=== PATIENT | male | born 1955 | race Caucasian/White ===

== ENCOUNTER 2020-05-07 17:08 | Inpatient (IN) | payer OTHER ==
[~2020-05-07] VITALS: Ht 180.3 cm; Wt 99.3 kg
[2020-05-07 20:00] VITALS: BP 136/66
[2020-05-07] MEDS ORDERED: GLUMETZA1000 (20:28)
[2020-05-07] MEDS ORDERED: ST. JOSEPH ASPI81 MG PO (20:29)
[2020-05-07] MEDS ORDERED: LIPITOR40 MG PO (20:30)
[2020-05-07] MEDS ORDERED: LISINOPRIL10 MG PO (20:30)
[2020-05-07] MEDS ORDERED: LIDODERM1 EACH TOP (20:31)
--- NOTE | 2020-05-07 21:16 | NUR ---
PATIENT WAS ADMITTED TO [facility] AND ARRIVED TO FLOOR AT 1919 BY EMS. PATIENT IS QUIET AND STATES HE IS TIRED AND HAVING WHAT HE DESCRIBES NEUROPATHY PAIN IN SHOULDER L, SPINE, FEET. HE STATES WHEN HIS CHEST IS TOUCHED IT FEELS LIKE A PIN CUSHION. PATIENT STATES HOT SHOWERS HELP AND HE USUALLY HAS LIDOCAINE PATCH ON HIS BACK FOR BACK PAIN. NONE PRESENT AT THIS TIME. PATIENT WAS SHOWERED. HE IS INDEPENDENT WITH CARES AND IS CONTINENT OF BOWEL AND BLADDER. HE CAME TO US FROM [facility]. HE HAS BEEN IN AND OUT OF PSYCH TREATMENT THROUGH OUT HIS LIFETIME. HE SIGNED VOLUNTEERLY AND STATES HE IS HERE BECAUSE HE WAS BEEING CHASED BY POLICE THAT WERE WANTING TO HURT AND TORTURE HIM. HE STATES HE FEELS SAFE NOW SINCE HE KNOWS HE'S NOT IN [place]. I ASKED IF HE KNEW WHERE HE WAS? HE STATED HOSPITAL BUT DOESN'T THINK IT'S IN . ORIENTED PATIENT TO FLOOR. PATIENT WANTED TO GO TO SLEEP RIGHT AWAY AFTER SHOWER. HE WAS GIVEN A BOX LUNCH ONCE HE GOT HERE AND ATE 100%. PATIENT HAS MED HISTORY OF [facility] AND HYPERLIPIDEMIA. IT APPEARS THAT PATIENT IS LIVING ON HIS OWN WHEN NOT IN HOSPITAL DUE TO CANNABIS USE. PT MENTAL HX OF SCHZOAFFECTIVE DISORDER, BIPOLAR/CANNABIS USE. PATIENT IS ACCEPTING OF THIS HOSPITAL STAY. PATIENT AMBULATES WITHOUT ISSUE. PHYSICAL ASSESSMENT WNL. LBM WAS 05/07/20. BED IN LOW POSITION AND BED ALARM IS ON FOR TONIGHT FOR SAFETY.
--- NOTE | 2020-05-08 01:20 | NUR ---
UPON ADMISSION AT 1910 PATIENT ASSESSMENT WAS DONE. PATIENT NEGATIVE FOR SIGNS OF COVID. HE IS A/0X3. HE HAS REGULAR HEART RATE AND S1S2 HEARD. LUNGS ARE CTA BILATERALLY, POSITIVE BOWEL SOUNDS IN ALL 4 QUADS OF ABDOMEN. NO EDEMA NOTED. PATIENT INDEPENDENT WITH CARES AND HAS STEADY GAIT. PATIENT WITH FLAT AFFECT. HE IS COOPERATIVE BUT IRRITABLE AT TIMES WHEN QUESTIONED. HE STATES HE IS VERY TIRED. PATIENT DENIES SI/HI/AVH. HE IS DELUSIONAL BELIEVING THAT THE [place] POLICE ARE LOOKING FOR HIM AND TRYING TO HURT AND TORTURE HIM. HE DOES NOT THINK HE'S IN [place] NOW SO STATES HE FEELS SAFE NOW. PATIENT HAS BEEN SLEEPING SINCE 2149. BED ALARM IS ON FOR SAFETY FOR FIRST NIGHT. WILL CONTINUE TO MONITOR.
--- NOTE | 2020-05-08 02:15 | NUR ---
PATIENT STARTED WITH DRY COUGH OFF AND ON THRU NIGHT. PATIENT'S COVID 19 PCR TEST WAS NEGATIVE. PATIENT UP TO BATHROOM. DENIES PAIN AT THIS TIME. BACK TO BED. BED ALARM ON TONIGHT. PATIENT WITH STEADY WALKING GAIT.
--- NOTE | 2020-05-08 06:41 | NUR ---
PATIENT GIVEN TYLENOL 650MG PO FOR GENERALIZED NEUROPATHY PAIN. PATIENT FELL BACK TO SLEEP AFTER TAKING AND SLEPT THRU THE NIGHT.
--- NOTE | 2020-05-08 06:49 | NUR ---
PATIENT WOKE AT 0300 FROM NIGHT SWEATS AND GOWN CHANGED. PATIENT REFUSED TO HAVE BED CHANGED. PATIENT STATES HE GETS THE NIGHT SWEATS ALOT FOR A LONG TIME.
[2020-05-08 07:58] VITALS: BP 165/87
--- NOTE | 2020-05-08 08:31 | NUR ---
ASSUMED CARE AT 0700 THIS MORNING. PT. IRRITABLE, NOT ACCEPTING DIRECTIONS FROM RN. HE WAS ASKED TO STAY IN HIS ROOM UNTIL DR. ORTIZ ARRIVES. HE CAME INTO THE DINING ROOM FOR BREAKFAST. STAFF SAT OTHER PATIENTS ACROSS THE ROOM FROM HIM. AFTER, HE SAT ON THE SOFA. AGAIN STAFF DIRECTED HIM INTO HIS ROOM. HE DID THEN GO TO HIS ROOM AT THAT POINT. WHEN ATTEMPTING TO GIVE HIM HIS MEDICATIONS, HE TOOK THE ORAL MEDICATIONS, BUT REFUSED INSULIN FOR A BLOOD SUGAR OF 290. HE STATED THAT "I NEVER TAKE INSULIN. WHO ORDERED THAT?" PT. IS CURRENTLY LYING IN HIS BED.
[2020-05-08 09:12] VITALS: BP 165/87
--- NOTE | 2020-05-08 13:59 | NUR ---
THIS ORDERLY WAS REQUESTED BY THE PATIENT TO COME VISIT HIM IN [facility]. PATIENT TOLD ABOUT ALL THE CIRCUMSTRANCES HE PLACED HIMSELF INTO. IT TURNS OUT THAT I KNOW HIS ALEVISM FLAME DEGREASER (), WHICH HE APPRECIATED. I ENCOURAGED THE PATIENT TO LEAN MORE ON THE MEDITATIVE SIDE OF HINDU AND TO BE CAREFUL TO BE NOT BE DRAWN INTO CONFLICTS.
[2020-05-08 19:23] VITALS: BP 156/92
[2020-05-08 20:21] VITALS: BP 156/92
--- NOTE | 2020-05-08 22:15 | NUR ---
PATIENT CAME OUT TO NURSE STATION AROUND 1914 REQUESTING SOME TYLENOL FOR A HEADACHE OF 5/10. PATIENT HAD SNACK AND THEN WENT BACK TO ROOM. PATIENT WAS COOPERATIVE BUT IRRITABLE. PATIENT STATES HE JUST WANTED TO SLEEP. PATIENT TOOK ALL HIS HS MEDS EARLY WITH THEY TYLENOL 650MG PO. PATIENT HAS BEEN SLEEPING SINCE. PATIENT DENIES SI/HI/AVH. HE DENIES PAIN. VSS. PATIENT'S BED IS IN LOW POSITION AND BED ALARM IS ON FOR SAFETY. ROUTINE ROUNDS. NO COUGHING OR NIGHT SWEATS SO FAR THIS EVENING. WILL CONTINUE TO MONITOR.
[2020-05-09 07:19] VITALS: BP 152/89
--- NOTE | 2020-05-09 08:47 | NUR ---
KELSEY and Dr. Lee met with pt to discuss is legal charges and plan of action for care. Pt did not want to participate. Pt said he does not care where he goes. KELSEY explained that she can link pt to Mr. Figueroa. He asked if it would be better than going to the [facility]. KELSEY responded that Mr. Figueroa will require pt be medicated and in compliance with MH treatment. Pt said he will not be medicated and would rather go to homeless halfway. KELSEY this morning contacted the [facility] rang for 2 min. straight. KELSEY called again at 9am. Phone number was busy. KELSEY will continue to call and ask pt what he would like to do if she cannot contact halfway. KELSEY team will continue to follow pt during his stay on this unit.
[2020-05-09 09:06] VITALS: BP 152/89
--- NOTE | 2020-05-09 09:32 | NUR ---
Alert and orientated to self--refuses to answer all other questions stating "it is a private matter". Asked what meds he was receiving. When explained each med, he took haldol and threw it on the floor but was compliant with all other meds and then threw cup on floor stating, "Where are your ethics? Get the hell out of here fat fuck!" Dr. eLe aware. Compliant with physical assessment except for back and buttocks. Breath sounds clear with good aeration. Dial sputum found spit on floor and sheets, moderate amts. Have not heard him coughing this AM. Reg HR auscultated. Color pink with brisk capillary refill and palpable peripheral pulses. Independent with voiding. Active bowel sounds over soft, rounded abdomen. Requesting shower and to be shaved prior to discharge. States he had a flu shot in March on one of his first hospitalizations.
[2020-05-09 09:49] VITALS: BP 152/89
[2020-05-09] MEDS ORDERED: LIPITOR40 MG PO (09:52)
[2020-05-09] MEDS ORDERED: ST. JOSEPH ASPI81 MG PO (09:52)
[2020-05-09] MEDS ORDERED: GLUMETZA1000 PO (09:52)
[2020-05-09] MEDS ORDERED: LISINOPRIL10 MG PO (09:52)
--- NOTE | 2020-05-09 10:41 | NUR ---
KELSEY D/C NOTE [facility] and then said that pt will need to have a negative covid result with him. KELSEY provided pt with a copy of his covid results from yesterday and explained he will need to know his soc. sec. number, have his id, and have his covid results to be able to stay. Pt mumbled he only has intentions in finding out if they can help him move. No other needs for SW team to address at this time.
--- NOTE | 2020-05-10 22:12 | H ---
[facility] [place] [address] HISTORY AND PHYSICAL Name: VONNIE PATEL Room #: 518A-A DIS IN M.R.#: [id number] Admission: 05/07/20 Attend Phys: Aly Lee DO Discharge: 05/09/20 Date of : 57 Report #: [id number] THIS REPORT FOR: cc: JOSÉ MIGUEL - Family physician unknown FAM - Family physician unknown Aly Lee DO ~ CC: Aly VALDEZ unknown DATE OF SERVICE: 05/08/2020 INPATIENT PSYCHIATRIC EVALUATION ATTENDING PSYCHIATRIST: Aly Lee DO MEDICAL CONSULTANTS: Gail Shine and Oc Suarez MD, collaborator of the hospital sources and service. SOURCES OF INFORMATION: Brief interview with the patient, records from [facility], chart review. CHIEF COMPLAINT: Delusion that the police are after him and want to abduct and torture him. He admits to marijuana and alcohol use overnight. HISTORY OF PRESENT ILLNESS: This is a 65-year-old male that was seen in the [facility] Emergency Room and then transferred to [facility]. The patient reports that the police are after him and want to abduct and torture him. He was seen for similar complaints about a month ago and ultimately transferred to Geriatric Psych at [facility]. He complained in the Emergency Room of painful and pleasurable sensation processes in the anterior chest and bilateral feet and it has been present since September. The patient was refusing to answer SI, HI or hallucination questions. Alert and oriented x 3. REVIEW OF SYSTEMS: At [place]: CONSTITUTIONAL: Negative. SKIN: Negative. EYES: Negative. EAR, NOSE, MOUTH, THROAT: Negative. RESPIRATORY: Negative. CARDIOVASCULAR: Negative. GASTROINTESTINAL: Negative. GENITOURINARY: Negative. MUSCULOSKELETAL: Negative. NEUROLOGIC: Negative. PSYCHIATRIC: Negative. [facility] [address] [place] [address] HISTORY AND PHYSICAL Name: VONNIE PATEL Room #: 51-A [facility]#: [id number] Admission: 05/07/20 Attend Phys: Aly Lee DO Discharge: 05/09/20 Date of : 57 Report #: [id number] ENDOCRINE: Negative. HEMATOLOGIC AND LYMPHATIC: Negative. ALLERGIES: Negative. PAST MEDICAL HISTORY: Includes type 2 diabetes mellitus. PSYCHIATRIC HISTORY: Schizoaffective disorder, substance use history, cannabis use disorder. PAST SURGICAL HISTORY: Denies. FAMILY HISTORY: Denies mental illness or suicide. SOCIAL HISTORY: Denies tobacco. Occasional alcohol and marijuana. Physical exam was grossly normal. LABORATORY DATA: Laboratories done at [place]: Sodium 135, potassium 4.4, chloride 98, bicarbonate 25, anion gap 12, glucose 333, BUN 15. An EKG showed sinus tachycardia, rate 101, MT 156, QTc 446, QT 344. ACTIVE MEDICATIONS: Metformin, Sitagliptin, lisinopril, atorvastatin, unclear on the antipsychotic. Additional information is from lab, creatinine 0.91, GFR non- 89, calcium 9.2, osmolality 294. White blood count 8.3, H and H 16.1 and 47.4, platelet count 257. UDS positive for cannabinoids. Alcohol less than 10. ADDITIONAL INFORMATION: From the crisis [facility] assessment: The patient was admitted in 03/2020, history of schizoaffective disorder, bipolar type and cannabis use disorder, was admitted to [facility], on presentation to the ED after an altercation that was precipitated by bizarre behavior and thinking. He is currently on a 96-hour hold due to grandiose and delusional thinking. He does have a past history of schizoaffective disorder. The patient does not believe he has a mental illness and reports he is afraid of being beaten by the police, he reports he is directed for 1 week by the police. He states he has been incarcerated for the past 2 days by police officers. He reports that he is having crying spells and also endorsed some symptoms of anxiety. Evidently, the patient made several passive suicidal ideations during assessment, also feels helpless and hopeless about his current situation. The patient also has noticed worsening depression for the past month without any intervention. He agreed for voluntary admission. Today, the patient required a COVID-19 swab, he refused, this had to be forcibly done with security staff present and the patient physically held down. He agreed to take 5 mg of Haldol, [address] [address] HISTORY AND PHYSICAL Name: VONNIE PATEL Room #: 518A-A [facility] IN ..#: [id number] Admission: 05/07/20 Attend Phys: Aly Lee, DO Discharge: 05/09/20 Date of : 57 Report #: [id number] which I started him on 5 mg b.i.d., if he got to use the phone for 15 minutes. He has thrown his food on the floor as well as peed on the floor of his room this morning so far. PHYSICAL EXAMINATION: and gait not tested, seated and lying in bed, disheveled, in hospital gown. MENTAL STATUS EXAMINATION: This is a well-developed, unkempt male, appearing stated age. Attention limited and oppositional. Concentration limited. Speech loud at times; at times cursing. Thought process: Linear and goal directed. Thought content: Requesting a automation and control engineer. Some psychomotor agitation. No psychomotor retardation. Denied SI or HI. Denied auditory, visual, or tactile hallucinations. Insight impaired, judgment impaired. Denying auditory, visual or tactile hallucinations, or refusing to answer whether he is suicidal or homicidal, insight impaired, judgment impaired. Fund of knowledge, below average. FORMULATION: A 65-year-old male, reportedly self-presenting for psychiatric complaints and vague physical complaints. DIAGNOSES: At this time, schizoaffective disorder, bipolar type, type 2 diabetes mellitus, hyperlipidemia. PLAN: The patient is voluntary. Evaluate, stabilize, obtain collateral, full code and start Haldol 5 mg p.o. twice daily. Other medications started per the night provider, atorvastatin 40 mg p.o. daily and lisinopril 10 mg p.o. daily. The patient is refusing, so that was discontinued, aspirin 81 mg p.o. daily. VITAL SIGNS: Here at [place], temperature 36.1, pulse 105, respirations 20, BP 165/87, O2 sat 98%. We will obtain collateral, evaluate and stabilize. ESTIMATED LENGTH OF STAY: 10-14 days. STRENGTHS: He is insured. WEAKNESSES: Psychosis, poor social support. His BMI is 30.6, height at 180.34 cm, his weight 99.[address] [address] HISTORY AND PHYSICAL Name: VONNIE PATEL Room #: 518A-A [facility] IN ..#: [id number] Admission: 05/07/20 Attend Phys: Aly Lee DO Discharge: 05/09/20 Date of : 57 Report #: [id number] At least 45 minutes spent on the case. I did ask Public Safety to see if he actually had a criminal record as he complains he has a lot of legal problems. <ELECTRONICALLY SIGNED> By: Aly Lee DO 05/10/20 2212 [id number] Aly Lee DO /nt
== END 2020-05-09 10:36 | disposition home or self-care (01) | DRG 885 ==
LOC: SBH 17:08
PROVIDERS: ADMIT Psychiatry & Neurology Psychiatry; ATTEND Psychiatry & Neurology Psychiatry
DX: F25.0 Schizoaffective disorder, bipolar type (principal); E78.5 Hyperlipidemia, unspecified; E11.9 Type 2 diabetes mellitus without complications; I10 Essential (primary) hypertension; F22 Delusional disorders; Z20.828 Contact with and (suspected) exposure to other viral communicable diseases; Z79.82 Long term (current) use of aspirin; Z79.899 Other long term (current) drug therapy; Z59.0 Homelessness
CPT/HCPCS: 10880

== ENCOUNTER 2021-07-31 22:58 | Emergency (ER) | payer OTHER ==
[~2021-07-31] VITALS: Ht 182.9 cm; Wt 93.9 kg
--- NOTE | ~2021-07-31 | EMS ---
[address] [address] EMS Patient Care Report Name: VONNIE PATEL Room #: DEP JAHAIRA Schwartz#: [id number] Admission: 07/31/21 Attend Phys: Discharge: 08/01/21 Date of : 57 Report #: [id number] THIS REPORT FOR: //name// Report Transmitted: 08/02/2021 10:08 EMS Care Summary [place], [place]/[facility] Incident [id number] @ 07/31/2021 22:13 Incident Location [address] [facility] Patient VONNIE PATEL Male, 66 Years 1955 Patient Address Patient History Diabetes, Patient Allergies No known allergies, Patient Medications Gabapentin, Metformin, Chief Complaint foot pain Disposition Transported No Lights/[place] Dispatch Reason Sick Person Transported To [facility] Narrative 9 dispatched to sick at [place]. O/A M29 found male in handcuffs. Pt reported he neuropathy in his feet and he was cold. Pt walked to [facility] and transported to [place]. [facility] in service. Initial Vitals @22:37P: 108,R: 18,BP: 111/54,Pain: 0/10,GCS: 15,CO: 2,SpO2: 96,Revised Trauma: 12, [address] [address] EMS Patient Care Report Name: VONNIE PATEL Room #: DEP ER MatthiasLori#: [id number] Admission: 07/31/21 Attend Phys: Discharge: 08/01/21 Date of : 57 Report #: [id number] @22:31P: 112,R: 18,BP: 137/65,Pain: 0/10,GCS: 15,Glucose: 170,CO: 0,SpO2: 97,Revised Trauma: 12, Assessments @22:35MENTAL:No Abnormalities,SKIN:No Abnormalities,HEENT:Head/Face: No Abnormalities,Eyes: No Abnormalities,Neck/Airway: No Abnormalities,LUNG SOUNDS:General: No Abnormalities,Left Upper: No Abnormalities,Right Upper: No Abnormalities,Left Lower: No Abnormalities,Right Lower: No Abnormalities,ABDOMEN:General: No Abnormalities,Left Upper: No Abnormalities,Right Upper: No Abnormalities,Left Lower: No Abnormalities,Right Lower: No Abnormalities,PELVIS//GI:No Abnormalities,EXTREMITIES:Left Arm: No Abnormalities,Right Arm: No Abnormalities,Left Leg: No Abnormalities,Right Leg: No Abnormalities,PULSE:NEURO:No Abnormalities,@22:35MENTAL:No Abnormalities,SKIN:No Abnormalities,HEENT:Head/Face: No Abnormalities,Eyes: No Abnormalities,Neck/Airway: No Abnormalities,LUNG SOUNDS:General: No Abnormalities,Left Upper: No Abnormalities,Right Upper: No Abnormalities,Left Lower: No Abnormalities,Right Lower: No Abnormalities,ABDOMEN:General: No Abnormalities,Left Upper: No Abnormalities,Right Upper: No Abnormalities,Left Lower: No Abnormalities,Right Lower: No Abnormalities,PELVIS//GI:No Abnormalities,EXTREMITIES:Left Arm: No Abnormalities,Right Arm: No Abnormalities,Left Leg: No Abnormalities,Right Leg: No Abnormalities,PULSE:NEURO:No Abnormalities, Impression Extremity Pain Timeline 22:11,Call Received 22:11,Dispatch Notified 22:13,Dispatched 22:13,En Route 22:23,On Scene 22:24,At Patient 22:30,Depart Scene 22:31,BP: 137/65 M,PULSE: 112,RR: 18 R,SPO2: 97 Ox,ETCO2: ,B,PAIN: 0,GCS: 15, 22:37,BP: 111/54 M,PULSE: 108,RR: 18 R,SPO2: 96 Ox,ETCO2: ,BG: ,PAIN: 0,GCS: 15, 23:02,At Destination 23:04,Call Closed Disclaimer v1.1 Copyright 2021 [employer] This EMS Care Summary contains data elements from the applicable legal record (which may be displayed differently). It is [place] [address] EMS Patient Care Report Name: VONNIE PATEL Room #: DEP ER [facility]#: [id number] Admission: 07/31/21 Attend Phys: Discharge: 08/01/21 Date of : 57 Report #: [id number] information for the following purposes: continuity of care, clinical quality, and state data reporting. The complete legal record is available to ED staff and administrators of the receiving hospital in [employer]'s Patient Tracker. All data is provided "as is."
--- NOTE | ~2021-07-31 | EMS ---
[address] [address] EMS Patient Care Report Name: VONNIE PATEL Room #: DEP JAHAIRA Schwartz#: [id number] Admission: 07/31/21 Attend Phys: Discharge: 08/01/21 Date of : 57 Report #: [id number] THIS REPORT FOR: //name// Report Transmitted: 08/02/2021 11:12 EMS Care Summary [place], [place]/[facility] Incident [id number] @ 07/31/2021 22:13 Incident Location [facility] Patient VONNIE PATEL Male, 66 Years 1955 Patient Address Patient History Diabetes, Patient Allergies No known allergies, Patient Medications Gabapentin, Metformin, Chief Complaint foot pain Disposition Transported No Lights/[place] Dispatch Reason Sick Person Transported To [facility] Narrative 9 dispatched to sick at [place]. O/A M29 found male in handcuffs. Pt reported he neuropathy in his feet and he was cold. Pt walked to [facility] and transported to [place]. [facility] in service. Initial Vitals @22:37P: 108,R: 18,BP: 111/54,Pain: 0/10,GCS: 15,CO: 2,SpO2: 96,Revised Trauma: 12, [address] [address] EMS Patient Care Report Name: VONNIE PATEL Room #: DEP ER LoriNikolaiLori#: [id number] Admission: 07/31/21 Attend Phys: Discharge: 08/01/21 Date of : 57 Report #: [id number] @22:31P: 112,R: 18,BP: 137/65,Pain: 0/10,GCS: 15,Glucose: 170,CO: 0,SpO2: 97,Revised Trauma: 12, Assessments @22:35MENTAL:No Abnormalities,SKIN:No Abnormalities,HEENT:Head/Face: No Abnormalities,Eyes: No Abnormalities,Neck/Airway: No Abnormalities,LUNG SOUNDS:General: No Abnormalities,Left Upper: No Abnormalities,Right Upper: No Abnormalities,Left Lower: No Abnormalities,Right Lower: No Abnormalities,ABDOMEN:General: No Abnormalities,Left Upper: No Abnormalities,Right Upper: No Abnormalities,Left Lower: No Abnormalities,Right Lower: No Abnormalities,PELVIS//GI:No Abnormalities,EXTREMITIES:Left Arm: No Abnormalities,Right Arm: No Abnormalities,Left Leg: No Abnormalities,Right Leg: No Abnormalities,PULSE:NEURO:No Abnormalities,@22:35MENTAL:No Abnormalities,SKIN:No Abnormalities,HEENT:Head/Face: No Abnormalities,Eyes: No Abnormalities,Neck/Airway: No Abnormalities,LUNG SOUNDS:General: No Abnormalities,Left Upper: No Abnormalities,Right Upper: No Abnormalities,Left Lower: No Abnormalities,Right Lower: No Abnormalities,ABDOMEN:General: No Abnormalities,Left Upper: No Abnormalities,Right Upper: No Abnormalities,Left Lower: No Abnormalities,Right Lower: No Abnormalities,PELVIS//GI:No Abnormalities,EXTREMITIES:Left Arm: No Abnormalities,Right Arm: No Abnormalities,Left Leg: No Abnormalities,Right Leg: No Abnormalities,PULSE:NEURO:No Abnormalities, Impression Extremity Pain Timeline 22:11,Call Received 22:11,Dispatch Notified 22:13,Dispatched 22:13,En Route 22:23,On Scene 22:24,At Patient 22:30,Depart Scene 22:31,BP: 137/65 M,PULSE: 112,RR: 18 R,SPO2: 97 Ox,ETCO2: ,B,PAIN: 0,GCS: 15, 22:37,BP: 111/54 M,PULSE: 108,RR: 18 R,SPO2: 96 Ox,ETCO2: ,BG: ,PAIN: 0,GCS: 15, 23:02,At Destination 23:04,Call Closed Disclaimer v1.1 Copyright 2021 [employer] This EMS Care Summary contains data elements from the applicable legal record (which may be displayed differently). It is [place] [address] EMS Patient Care Report Name: VONNIE PATEL Room #: DEP ER [facility]#: [id number] Admission: 07/31/21 Attend Phys: Discharge: 08/01/21 Date of : 57 Report #: [id number] information for the following purposes: continuity of care, clinical quality, and state data reporting. The complete legal record is available to ED staff and administrators of the receiving hospital in [employer]'s Patient Tracker. All data is provided "as is."
[~2021-07-31 22:58] MED LIST: GLUMETZA1000; GLUMETZA1000 PO; LIDODERM1 EACH TOP; LIPITOR40 MG PO; LISINOPRIL10 MG PO; ST. JOSEPH ASPI81 MG PO
[2021-08-01 03:28] VITALS: BP 142/72
== END 2021-08-01 03:30 | disposition home or self-care (01) ==
LOC: ER 22:58
DX: F10.129 Alcohol abuse with intoxication, unspecified (principal); Y90.9 Presence of alcohol in blood, level not specified; Y08.89XA Assault by other specified means, initial encounter; Y93.89 Activity, other specified; Y92.89 Other specified places as the place of occurrence of the external cause; Y99.8 Other external cause status